=== PATIENT | male | born 1955 | race Caucasian/White ===

== ENCOUNTER 2017-07-02 00:39 | Emergency (ER) | payer OTHER ==
[~2017-07-02] VITALS: Ht 175.3 cm; Wt 68.0 kg
[~2017-07-02 00:39] MED LIST: CYCLOBENZAPRINE5 MG PO; ERYTHROMYCIN E3.5 G1 OP; ERYTHROMYCIN E3.5 G1 OPHTHALMIC; ERYTHROMYCIN E3.5 G2 OP; GARAMYCIN5 ML OP; IBUPROFEN 200200 M1; IBUPROFEN 600600 M1 PO; IBUPROFEN 800800 M1 PO; IBUPROFEN 800800 MG PO; LIDODERM 5%1 PATCH TOP; MEDROLDOSEPACK PO; NOHOMEMEDICATIONS; NORCO 5-325 TA1 EACH PO; NORFLEX100 MG PO; PENICILLIN VK500 MG PO; PERCOCET 5-3251 EACH PO; TOBRAMYCIN SULFA5 ML OP; TRAMADOL 50 MG50 MG; TRAMADOL 50 MG50 MG PO; ULTRAM 50MG TAB50 MG PO
[2017-07-02 00:46] VITALS: BP 123/95
[2017-07-02] MEDS ORDERED: OXYCODONE HCL 55 MG PO (01:02)
== END 2017-07-02 01:20 | disposition home or self-care (01) ==
LOC: ER 00:39
DX: H16.8 Other keratitis (principal); G89.29 Other chronic pain

== ENCOUNTER 2019-08-23 00:06 | Emergency (ER) | payer OTHER ==
[~2019-08-23] VITALS: Ht 175.3 cm; Wt 68.0 kg
[~2019-08-23 00:06] MED LIST changes: +OXYCODONE HCL 55 MG PO
[2019-08-23] MEDS ORDERED: TRAMADOL 50 MG50 MG PO (02:31)
[2019-08-23] MEDS ORDERED: NAPROXEN375 MG PO (02:31)
[2019-08-23 02:49] VITALS: BP 126/81
== END 2019-08-23 02:50 | disposition home or self-care (01) ==
LOC: ER 00:06
DX: S30.0XXA Contusion of lower back and pelvis, initial encounter (principal); M19.90 Unspecified osteoarthritis, unspecified site; G89.29 Other chronic pain; M54.5 Low back pain; F17.200 Nicotine dependence, unspecified, uncomplicated; Z90.79 Acquired absence of other genital organ(s); W13.2XXA Fall from, out of or through roof, initial encounter; Y92.009 Unspecified place in unspecified non-institutional (private) residence as the place of occurrence of the external cause; Y93.89 Activity, other specified; Y99.8 Other external cause status

== ENCOUNTER 2019-09-16 22:14 | Emergency (ER) | payer OTHER ==
[~2019-09-16] VITALS: Ht 175.3 cm; Wt 70.3 kg
[~2019-09-16 22:14] MED LIST changes: +HYDROCODON-ACE1 EAC7 PO; +NAPROXEN375 MG PO
[2019-09-16 22:18] VITALS: BP 147/94
[2019-09-16] MEDS ORDERED: IBUPROFEN 600600 M1 PO (22:57)
== END 2019-09-16 23:11 | disposition home or self-care (01) ==
LOC: ER 22:14
DX: H16.133 Photokeratitis, bilateral (principal); M54.9 Dorsalgia, unspecified; G89.29 Other chronic pain; F17.210 Nicotine dependence, cigarettes, uncomplicated; Z98.52 Vasectomy status

== ENCOUNTER 2020-07-16 04:56 | Emergency (ER) | payer OTHER ==
[~2020-07-16] VITALS: Ht 175.3 cm; Wt 72.6 kg
[~2020-07-16 04:56] MED LIST changes: +FLEXERIL PO; +GENTAK5 ML EA. EYE; +NORCO 5-325 TA1 EAC1 PO
[2020-07-16] MEDS ORDERED: ULTRAM50 MG PO (06:00)
[2020-07-16 06:07] VITALS: BP 132/84
== END 2020-07-16 06:07 | disposition home or self-care (01) ==
LOC: ER 04:56
DX: H16.133 Photokeratitis, bilateral (principal); G89.29 Other chronic pain; M54.9 Dorsalgia, unspecified; Z88.6 Allergy status to analgesic agent

== ENCOUNTER 2021-02-18 02:02 | Emergency (ER) | payer OTHER ==
[~2021-02-18] VITALS: Ht 175.3 cm; Wt 68.0 kg
[~2021-02-18 02:02] MED LIST changes: +ULTRAM50 MG PO
[2021-02-18 02:39] VITALS: BP 175/89
== END 2021-02-18 02:39 | disposition home or self-care (01) ==
LOC: ER 02:02
DX: H16.133 Photokeratitis, bilateral (principal); Z88.6 Allergy status to analgesic agent; Z90.89 Acquired absence of other organs

== ENCOUNTER 2021-08-23 23:25 | Emergency (ER) | payer OTHER ==
[~2021-08-23] VITALS: Ht 175.3 cm; Wt 72.6 kg
[2021-08-23] MEDS ORDERED: TRAMADOL 50 MG50 MG PO (23:30)
[2021-08-23] MEDS ORDERED: HYDROCODON-ACE1 EAC7 PO (23:30)
[2021-08-24] MEDS ORDERED: IBUPROFEN 800800 MG PO (00:14)
[2021-08-24] MEDS ORDERED: APAP W/CODEINE1 TA2 PO (00:14)
[2021-08-24] MEDS ORDERED: ARTIFICIAL TEAR15 M4 EA. EYE (00:19)
[2021-08-24] MEDS ORDERED: ERYTHROMYCIN E3.5 G3 OPHTHALMIC (00:19)
[2021-08-24 00:27] VITALS: BP 148/94
== END 2021-08-24 00:27 | disposition home or self-care (01) ==
LOC: ER 23:25
DX: H57.13 Ocular pain, bilateral (principal); F17.200 Nicotine dependence, unspecified, uncomplicated; Z57.1 Occupational exposure to radiation; Z90.89 Acquired absence of other organs; Z79.891 Long term (current) use of opiate analgesic; Z79.899 Other long term (current) drug therapy

== ENCOUNTER 2021-11-13 23:46 | Emergency (ER) | payer OTHER ==
[~2021-11-13] VITALS: Ht 175.3 cm; Wt 72.6 kg
[~2021-11-13 23:46] MED LIST changes: +APAP W/CODEINE1 TA2 PO; +ARTIFICIAL TEAR15 M4 EA. EYE; +ERYTHROMYCIN E3.5 G3 OPHTHALMIC
[2021-11-14] MEDS ORDERED: NAPROSYN500 MG PO (00:17)
[2021-11-14] MEDS ORDERED: GARAMYCIN5 ML OPHTHALMIC (00:17)
[2021-11-14 01:59] VITALS: BP 165/76
== END 2021-11-14 02:00 | disposition home or self-care (01) ==
LOC: ER 23:46
DX: S05.02XA Injury of conjunctiva and corneal abrasion without foreign body, left eye, initial encounter (principal); S05.01XA Injury of conjunctiva and corneal abrasion without foreign body, right eye, initial encounter; Z79.899 Other long term (current) drug therapy; Z88.8 Allergy status to other drugs, medicaments and biological substances; X58.XXXA Exposure to other specified factors, initial encounter; Y93.89 Activity, other specified; Y92.89 Other specified places as the place of occurrence of the external cause; Y99.8 Other external cause status